=== PATIENT | female | born 1990 | race American Indian/Alaskan Native ===

== ENCOUNTER 2017-07-30 09:23 | Day surgery (SDC) | payer BC ==
[~2017-07-30 09:23] MED LIST: ANCEF/STERILE WATER 2 GM/20 ML IV NR; HEPARIN SUB-Q NR; NACL 0.9% IR ONE
[2017-07-30] MEDS ORDERED: SUBLIMAZE ONE (09:25)
[2017-07-30] MEDS ORDERED: DIPRIVAN 10 MG/ML IV ONE (09:26)
[2017-07-30] MEDS ORDERED: XYLOCAINE MPF 2% ONE (09:26)
[2017-07-30] MEDS ORDERED: ZEMURON IV ONE (09:26)
[2017-07-30] MEDS ORDERED: MARCAINE 0.25% INFILTRATI ONE ×3 (09:55→11:07)
--- NOTE | 2017-07-30 10:05 | Anesthesia Consultation ---
Anesthesia Consult and Med Hx Date of service: 07/30/17 - Airway Anesthetic Teeth Evaluation: Good ROM Head & Neck: Adequate Mental/Hyoid Distance: Adequate Mallampati Class: Class I Intubation Access Assessment: Good - Pulmonary Exam CTA: Yes (clear breath sounds bilaterally) - Cardiac Exam Cardiac Exam: RRR - Pre-Operative Health Status ASA Pre-Surgery Classification: ASA2 Proposed Anesthetic Plan: General - Pre-Anesthesia Comment Pre-Anesthesia Comments: Patient is overweight. She states she would not accept whole blood because she is Judaism. - Pulmonary Hx Asthma: Yes (occasional albuterol use)
[2017-07-30] MEDS ORDERED: DILAUDID IV PRN (10:16)
[2017-07-30] MEDS ORDERED: PERCOCET 5/325 PO PRN (10:16)
--- NOTE | 2017-07-30 10:16 | Anesthesia Day of Surgery ---
Anesthesia Day of Surgery - Day of Surgery Patient Examined: Yes Patient H&P Reviewed: Yes Patient is NPO: Yes
[2017-07-30] MEDS ORDERED: PEPCID IV NR (11:00)
[2017-07-30] MEDS ORDERED: NACL 0.9% 1000 ML 1,000 ML IV SCH (11:00)
[2017-07-30] MEDS ORDERED: DECADRON ONE (11:02)
[2017-07-30] MEDS ORDERED: ZOFRAN ONE (11:14)
[2017-07-30] MEDS ORDERED: ROBINUL ONE ×2 (11:14)
[2017-07-30] MEDS ORDERED: NEOSTIGMINE ONE (11:14)
[2017-07-30] MEDS ORDERED: TORADOL ONE (11:22)
[2017-07-30] MEDS ORDERED: NEO SYNEPHRINE/NS Syringe(OR USE) IV ONE (11:26)
[2017-07-30] MEDS ORDERED: NACL 0.9% IR ONE (11:28)
--- NOTE | 2017-07-30 11:32 | Short Stay Summary ---
Short Stay Documentation Date of service: 07/30/17 - History H&P: obtained from office - Allergies and Medications Current Medications: Allergies gabapentin [From Neurontin] Allergy (Verified 07/30/17 10:08) ASTHMA shellfish derived Allergy (Verified 07/30/17 10:08) RASH, ASTHMA TOPICAL IODINE OK IVP DYE Allergy (Uncoded 07/30/17 10:07) Unknown Home Medications Medication Instructions Recorded Confirmed Last Taken Type ALBUTEROL NEB's [Proventil] 2.5 mg IH QDAY PRN 07/30/17 07/30/17 07/02/17 History Albuterol Sulfate [Ventolin Hfa] 1 dose IH QDAY PRN 07/30/17 07/30/17 07/02/17 History Buspirone HCl [busPIRone] 15 mg PO BID 07/30/17 07/30/17 07/29/17 History Calcium Carbonate [Calcium] 1 tab PO QDAY 07/30/17 07/30/17 07/27/17 History Cholecalciferol Vit D3 [Vitamin D3] 1 tab PO QDAY 07/30/17 07/30/17 07/27/17 History FLUoxetine HCL [Fluoxetine HCl] 40 mg PO QDAY 07/30/17 07/30/17 07/29/17 History Norelgestromin/Ethin.estradiol 1 patch TD QWEEK 07/30/17 07/30/17 07/23/17 History [Xulane Patch] Pregabalin [Lyrica] 400 mg PO QDAY 07/30/17 07/30/17 07/29/17 History Active Medications Cefazolin Sodium (Ancef/Sterile Water 2 Gm/20 Ml) 2 gm IV PREOP NR Stop: 07/30/17 23:59 Famotidine (Pepcid) 20 mg IV PREOP NR Stop: 07/30/17 13:00 Last Admin: 07/30/17 10:29 Dose: 20 mg Heparin Sodium (Porcine) (Heparin) 5,000 unit SUB-Q PREOP NR Stop: 07/30/17 23:59 Last Admin: 07/30/17 10:30 Dose: 5,000 unit Hydromorphone HCl (Dilaudid) 0.5 mg IV Q10MIN PRN PRN Reason: Pain , Severe (7-10) Stop: 07/30/17 13:00 Sodium Chloride (Nacl 0.9% 1000 Ml) 1,000 mls @ 100 mls/hr IV DIRECT QUINN Last Admin: 07/30/17 10:28 Dose: 100 mls/hr Oxycodone/Acetaminophen (Percocet 5/325) 1 tab PO ONCE PRN PRN Reason: Pain, Moderate (4-6) Stop: 07/30/17 13:00 - Brief post op/procedure progress note Date of procedure: 07/30/17 Pre-op diagnosis: Biliary colic Post-op diagnosis: same Procedure: Laparoscopic cholecystectomy Anesthesia: local Surgeon: QUINTON ZAMAN Roofer Helper V[employer] Coating: ZANDER GOULD Estimated blood loss: none Pathology: list (gallbladder) Condition: stable - Disposition Condition at discharge: Good Disposition: DC-01 TO HOME OR SELFCARE Short Stay Discharge Plan Activity: no restrictions Diet: regular Wound: remove dressing (08/01/17 and then may shower) Follow up with: KEVIN OLIVIA MD [Primary Care Provider] - 7 Days QUINTON ZAMAN MD [Staff Physician] - 7 Days Prescriptions: oxyCODONE /ACETAMINOPHEN [Percocet 5/325] 1 - 2 tab PO Q4HR PRN #30 tab PRN Reason: Pain Promethazine [Phenergan TAB] 25 mg PO Q6HR PRN #10 tab PRN Reason: Nausea
[2017-07-30] MEDS ORDERED: PERCOCET 5/325 PO ONE (13:17)
--- NOTE | 2017-07-30 13:57 | Post Anesthesia Evaluation ---
- Post Anesthesia Evaluation Patient Participated: Yes Airway Patent: Yes Stable Respiratory Function: Yes Nausea/Vomiting: No Temp > 96.8F: Yes Pain Manageable: Yes Adequeate Hydration: Yes Anesthesia Complications: No
[2017-07-30] MEDS ORDERED: PHENERGAN PO SCH (14:00)
--- NOTE | 2017-07-30 14:41 | Operative Report ---
PREOPERATIVE DIAGNOSIS: Biliary colic. POSTOPERATIVE DIAGNOSIS: Biliary colic. PROCEDURE: Laparoscopic cholecystectomy. SURGEON: Noe Head MD JOURNEY[employer] DIE MAKER: Dr. Ames. ANESTHESIA: General and local. ESTIMATED BLOOD LOSS: Minimal. SPECIMEN: Gallbladder. COMPLICATIONS: None. INDICATIONS: This is a 27-year-old female who has right upper quadrant pain and nausea and has been found to have gallstones, and presents now for laparoscopic cholecystectomy for her biliary colic. OPERATIVE COURSE: The patient was brought to the operating room, identified, and placed in the supine position. General anesthesia was achieved. Her abdomen was prepped and draped in usual manner. Prior to all incisions, the area was injected with 0.25% Marcaine. A supraumbilical 5 mm incision was made using a Veress needle technique. The abdomen was insufflated to 15 mmHg pressure. A 5-mm trocar was inserted using a 30-degree 5-mm telescope. The other trocars were placed under direct vision, which included a 10-mm epigastric port site and two 5-mm right lateral ports. The gallbladder was grasped and elevated. We tented up the triangle of Calot and then dissected out the cystic duct and artery. Once they were clearly identified going to the gallbladder, we placed clips in the duct proximally and distally and transected it and clips in the artery proximally and distally and transected it. The gallbladder was removed from the liver bed using electrocautery and then delivered through the epigastric port site. The liver bed was hemostatic during the procedure. The clips were in good position. We removed the ports under direct vision. No signs of bleeding from the port sites. We evacuated the CO2 and then closed all the incisions with a 4-0 Vicryl suture, Steri-Strips and bandage. She tolerated the procedure well without complications. JOB# [id number] BSM/NTS
[2017-07-30 19:47] VITALS: BP 93/63
== END 2017-07-30 14:00 | disposition home or self-care (01) ==
LOC: OR 09:23
PROVIDERS: ATTEND Surgery
DX: K80.70 Calculus of gallbladder and bile duct without cholecystitis without obstruction (principal); E66.9 Obesity, unspecified; J45.909 Unspecified asthma, uncomplicated; K21.9 Gastro-esophageal reflux disease without esophagitis; E04.1 Nontoxic single thyroid nodule; F41.9 Anxiety disorder, unspecified; F32.9 Major depressive disorder, single episode, unspecified; M79.7 Fibromyalgia; D64.9 Anemia, unspecified; Z88.8 Allergy status to other drugs, medicaments and biological substances
CPT/HCPCS: 47562; 81025; 88304; J0690; J1100; J1644; J1885; J2370; J2405; J2704; J2710; J3010; J7030; Q0169